=== PATIENT | male | born 1960 | race African-American/Black ===

== ENCOUNTER 2023-07-27 15:19 | Emergency (ER) | payer OTHER ==
[~2023-07-27] VITALS: Ht 170.2 cm; Wt 86.0 kg
[2023-07-27 15:24] VITALS: TEMP 97.8
[2023-07-27] MEDS ORDERED: LOSA25TA41 PO (15:31)
[2023-07-27] MEDS ORDERED: LEVE750T4 PO (15:31)
[2023-07-27] MEDS ORDERED: AMLO5TAB66 PO (15:31)
[2023-07-27] MEDS: LevETIRAcetam 500 MG TABLET PO ONE (15:34)
[2023-07-27 15:41] LABS: BASOPHILS % (AUTO) 0.4 % (0.0-2.0); EOSINOPHILS % (AUTO) 1.6 % (1.0-6.0); HEMATOCRIT 27.4 % (41-53); HEMOGLOBIN 9.5 g/dL (13.5-17.5); LYMPHOCYTES # (AUTO) 1.9 K/uL (1.0-4.8); LYMPHOCYTES % (AUTO) 36.5 % (22.0-44.0); MEAN CORPUSCULAR HEMOGLOBIN 28.8 pg (26.0-34.0); MEAN CORPUSCULAR HGB CONC 34.5 G/dL (31.0-37.0); MEAN CORPUSCULAR VOLUME 84 fL (80-100); MONOCYTES # (AUTO) 0.5 K/uL (0.1-1.0); MONOCYTES % (AUTO) 9.8 % (2.0-9.0); NEUTROPHILS # (AUTO) 2.8 K/uL (1.8-7.7); NEUTROPHILS % (AUTO) 51.7 % (40.0-70.0); PLATELET COUNT (AUTO) 116 K/uL (150-450); RED BLOOD CELL COUNT(AUTO) 3.28 MIL/uL (4.50-5.90); RED CELL DISTRIBUTION WIDTH 15.4 % (11.5-14.5); WHITE BLOOD COUNT (AUTO) 5.3 K/uL (4.5-11.0)
[2023-07-27 15:52] LABS: CALCIUM, TOTAL 8.8 mg/dL (8.8-10.5); CREATININE 7.46 mg/dL (0.60-1.30); POTASSIUM 3.9 mmol/L (3.5-5.1)
[2023-07-27 16:59] VITALS: BP 125/75; PULSE 65; RESP 14
== END 2023-07-27 17:23 | disposition home or self-care (01) ==
LOC: EMS 15:19
DX: G40.909 Epilepsy, unspecified, not intractable, without status epilepticus (principal); I10 Essential (primary) hypertension; Z98.890 Other specified postprocedural states
CPT/HCPCS: 80048; 82962; 85025; 99283